=== PATIENT | male | born 2000 | race Caucasian/White ===

== ENCOUNTER 2023-08-20 10:46 | Day surgery (SDC) | payer OTHER ==
[~2023-08-20] VITALS: Ht 177.8 cm; Wt 115.7 kg
[~2023-08-20 10:46] MED LIST: ACET-897 PO; DIVA500T94 PO; DULO1CAP6 PO; LINZ145C PO; PANT40TA29 PO; RIZA10TA58 PO; SENN-83 PO; SUCR1ORA PO
[2023-08-20] MEDS ORDERED: fentaNYL 100 MCG/2 ML INJECTION As Ordered ONE (11:04)
[2023-08-20] MEDS: NS 1,000 ML IV ONE (11:14)
[2023-08-20] MEDS ORDERED: propofoL 200 MG/20 ML VIAL As Ordered ONE (12:34)
[2023-08-20 13:21] VITALS: BP 147/78; TEMP 96.6; O2SAT 97
== END 2023-08-20 13:50 | disposition home or self-care (01) ==
LOC: M OPP 10:46
PROVIDERS: ATTEND Internal Medicine Gastroenterology
DX: K21.00 Gastro-esophageal reflux disease with esophagitis, without bleeding (principal); K29.70 Gastritis, unspecified, without bleeding; K44.9 Diaphragmatic hernia without obstruction or gangrene; Z87.11 Personal history of peptic ulcer disease; G47.30 Sleep apnea, unspecified; Z99.89 Dependence on other enabling machines and devices; Z79.891 Long term (current) use of opiate analgesic; Z79.899 Other long term (current) drug therapy; Z88.1 Allergy status to other antibiotic agents; Z88.5 Allergy status to narcotic agent; Z91.040 Latex allergy status; Z91.09 Other allergy status, other than to drugs and biological substances
CPT/HCPCS: 43239; 88305; J3010

== ENCOUNTER 2024-02-14 01:12 | Emergency (ER) | payer OTHER ==
[~2024-02-14] VITALS: Ht 180.3 cm; Wt 122.5 kg
[~2024-02-14 01:12] MED LIST changes: -RIZA10TA58 PO; +RIZA10TA58 SL
[2024-02-14] MEDS ORDERED: SUCR1TAB56 PO (14:01)
[2024-02-14] MEDS ORDERED: HOME MED LIST COMPLETE! XX SCH (14:05)
[2024-02-14 15:30] VITALS: BP 142/76; TEMP 97.9; O2SAT 96
== END 2024-02-14 15:30 | disposition home or self-care (01) ==
LOC: M ED 01:12
DX: F32.A Depression, unspecified (principal); K21.9 Gastro-esophageal reflux disease without esophagitis; Z79.899 Other long term (current) drug therapy; Z88.5 Allergy status to narcotic agent; Z88.1 Allergy status to other antibiotic agents; Z91.040 Latex allergy status

== ENCOUNTER → 2025-04-03 | Outpatient (CLI) | payer OTHER ==
[~2025-04-03] MED LIST changes: +DIVA-41 PO; -DIVA500T94 PO; +SENN-187 PO; -SENN-83 PO; +SUCR1TAB56 PO
== END ==
LOC: M LAB 14:12 → M PLALAB 14:12
PROVIDERS: ATTEND Family Medicine
DX: Z00.01 Encounter for general adult medical examination with abnormal findings (principal); F41.9 Anxiety disorder, unspecified; R56.9 Unspecified convulsions; Z53.9 Procedure and treatment not carried out, unspecified reason

== ENCOUNTER → 2025-04-03 | Outpatient (CLI) | payer OTHER | LOC: M LAB 14:16 → M PLALAB 14:16 | PROVIDERS: ATTEND Psychiatry & Neurology Neurology | DX: R56.9 Unspecified convulsions (principal); Z53.9 Procedure and treatment not carried out, unspecified reason ==